=== PATIENT | female | born 1980 | race African-American/Black ===

== ENCOUNTER 2021-02-15 07:15 | Emergency (ER) | payer MEDICAID ==
[~2021-02-15] VITALS: Ht 167.6 cm; Wt 100.0 kg
[~2021-02-15 07:15] MED LIST: LEVO500T2 PO
[2021-02-15] MEDS ORDERED: HYDROCODONE/ACETAMINOPHEN 5/325MG TABLET PO ONE (10:45)
[2021-02-15] MEDS ORDERED: ONDANSETRON 4MG ODT PO ONE (10:45)
[2021-02-15 10:59] VITALS: BP 138/74
[2021-02-15 11:28] LABS: CLARITY URINE CLOUDY (CLEAR); COLOR URINE YELLOW (YELLOW); KETONES URINE NEGATIVE (NEGATIVE); LEUKOCYTE ESTERASE URINE 1+ (NEGATIVE); NITRITE URINE NEGATIVE (NEGATIVE); OCCULT BLOOD URINE NEGATIVE (NEGATIVE); PROTEIN URINE NEGATIVE (NEGATIVE); SPECIFIC GRAVITY URINE 1.027 (1.005-1.030); UROBILINOGEN URINE 0.2 E.U./dL (0.2-1.0)
[2021-02-15 11:48] LABS: BASOPHILS % 0.6 % (0.0-2.0); EOSINOPHILS % 2.2 % (0.0-5.0); HEMATOCRIT. 29.3 % (36.0-48.0); HEMOGLOBIN. 9.2 g/dL (12.0-16.0); LYMPHOCYTES % 19.6 % (20.0-50.0); MEAN CORPUSCULAR HEMOGLOBIN 24.5 pg (28.0-32.0); MEAN CORPUSCULAR VOLUME 77.9 fL (81.0-99.0); MEAN PLATELET VOLUME 6.6 fl (7.4-10.4); MONOCYTES % 6.3 % (2.0-8.0); NEUTROPHILS % 71.3 % (40.0-76.0); PLATELET 407 x1000/uL (130-400); RED BLOOD CELL COUNT 3.76 mill/uL (4.2-5.4); RED CELL DISTRIBUTION WIDTH 16.7 % (11.6-14.6)
[2021-02-15 11:50] LABS: CHLORIDE 109 mEq/L (98-107)
[2021-02-15 12:04] LABS: HCG SCREEN NEGATIVE
[2021-02-15] MEDS ORDERED: IBUP-2030 MT (14:52)
[2021-02-15] MEDS ORDERED: ONDA4TAB11 PO (14:52)
[2021-02-15] MEDS ORDERED: FERR324T4 MT (14:52)
[2021-02-15] MEDS ORDERED: NITR100C MT (14:52)
[2021-02-16] MEDS ORDERED: CEPH500T MT (19:31)
[2021-02-16] MEDS ORDERED: NAPR-1074 MT (19:31)
== END 2021-02-15 15:22 | disposition home or self-care (01) ==
LOC: ER 07:15
DX: R10.31 Right lower quadrant pain (principal); R11.0 Nausea; D25.9 Leiomyoma of uterus, unspecified; I88.0 Nonspecific mesenteric lymphadenitis
CPT/HCPCS: 36415; 74176; 76830; 76856; 80053; 81003; 81025; 83690; 84703; 85025; 87086; 99285; Q0162

== ENCOUNTER 2021-02-16 12:37 | Emergency (ER) | payer MEDICAID ==
[~2021-02-16] VITALS: Ht 167.6 cm; Wt 103.0 kg
[~2021-02-16 12:37] MED LIST changes: +FERR324T4 MT; +IBUP-2030 MT; +NITR100C MT; +ONDA4TAB11 PO
[2021-02-16] MEDS ORDERED: SODIUM CHLORIDE 0.9% 1,000 ML IV ONE (16:00)
[2021-02-16] MEDS ORDERED: MORPHINE SULFATE 4 MG/ML CPJ (NOT FOR IM USE) IV ONE (16:15)
[2021-02-16 16:29] LABS: CHLORIDE 108 mEq/L (98-107)
[2021-02-16 16:32] LABS: BASOPHILS % 0.6 % (0.0-2.0); EOSINOPHILS % 2.9 % (0.0-5.0); HEMATOCRIT. 27.9 % (36.0-48.0); HEMOGLOBIN. 8.8 g/dL (12.0-16.0); LYMPHOCYTES % 26.4 % (20.0-50.0); MEAN CORPUSCULAR HEMOGLOBIN 24.5 pg (28.0-32.0); MEAN CORPUSCULAR VOLUME 77.9 fL (81.0-99.0); MEAN PLATELET VOLUME 6.6 fl (7.4-10.4); MONOCYTES % 9.2 % (2.0-8.0); NEUTROPHILS % 60.9 % (40.0-76.0); PLATELET 361 x1000/uL (130-400); RED BLOOD CELL COUNT 3.59 mill/uL (4.2-5.4); RED CELL DISTRIBUTION WIDTH 16.5 % (11.6-14.6)
[2021-02-16 16:49] LABS: HCG SCREEN NEGATIVE
[2021-02-16 18:59] LABS: CLARITY URINE CLEAR (CLEAR); COLOR URINE YELLOW (YELLOW); KETONES URINE TRACE (NEGATIVE); LEUKOCYTE ESTERASE URINE 2+ (NEGATIVE); NITRITE URINE NEGATIVE (NEGATIVE); OCCULT BLOOD URINE TRACE (NEGATIVE); PH URINE 5.5 (4.5-8.0); PROTEIN URINE NEGATIVE (NEGATIVE); SPECIFIC GRAVITY URINE 1.014 (1.005-1.030); UROBILINOGEN URINE 0.2 E.U./dL (0.2-1.0)
[2021-02-16 19:18] LABS: *AMPHETAMINES SCREEN URINE NEGATIVE (NEGATIVE); *BARBITURATES SCREEN URINE NEGATIVE (NEGATIVE); *BENZODIAZEPINES SCREEN URINE NEGATIVE (NEGATIVE); *COCAINE SCREEN URINE NEGATIVE (NEGATIVE)
[2021-02-16 19:19] LABS: METHADONE URINE SCREEN NEGATIVE (NEGATIVE); PHENCYCLIDINE URINE SCREEN NEGATIVE (NEGATIVE)
[2021-02-16] MEDS ORDERED: CEPHALEXIN 250MG CAPSULE PO ONE (19:30)
[2021-02-16] MEDS ORDERED: CEPH500T MT (19:31)
[2021-02-16] MEDS ORDERED: NAPR-1074 MT (19:31)
[2021-02-16 19:32] LABS: CANNABINOID URINE SCREEN PRESUMTIVE POSITIVE (NEGATIVE); OPIATES URINE SCREEN PRESUMTIVE POSITIVE (NEGATIVE)
[2021-02-16 20:00] VITALS: BP 128/70
== END 2021-02-16 20:31 | disposition home or self-care (01) ==
LOC: ER 12:37
DX: N39.0 Urinary tract infection, site not specified (principal); I10 Essential (primary) hypertension; Z88.6 Allergy status to analgesic agent; Z88.5 Allergy status to narcotic agent; Z79.899 Other long term (current) drug therapy; Z98.890 Other specified postprocedural states
CPT/HCPCS: 36415; 76856; 80053; 80305; 81003; 83605; 83690; 84703; 85025; 85610; 96361; 96374; 99284; J2270; J7030

== ENCOUNTER 2023-09-20 22:10 | Emergency (ER) | payer MEDICAID ==
[~2023-09-20] VITALS: Ht 167.6 cm; Wt 90.0 kg
[~2023-09-20 22:10] MED LIST changes: -LEVO500T2 PO; +NAPR-1074 MT; -NITR100C MT
[2023-09-20 22:14] VITALS: BP 160/94; PULSE 90; RESP 16; TEMP 98.3; O2SAT 98
== END 2023-09-21 08:22 | disposition home or self-care (01) ==
LOC: ER 22:10
DX: B34.9 Viral infection, unspecified (principal); I10 Essential (primary) hypertension; Z88.6 Allergy status to analgesic agent; Z88.5 Allergy status to narcotic agent; Z98.890 Other specified postprocedural states
CPT/HCPCS: 99283

== ENCOUNTER 2023-11-07 23:28 | Emergency (ER) | payer MEDICAID ==
[~2023-11-07] VITALS: Ht 167.6 cm; Wt 106.0 kg
[2023-11-07 23:53] VITALS: TEMP 98.1; O2SAT 100
[2023-11-08 00:30] LABS: BASOPHILS % 0.6 % (0.0-2.0); EOSINOPHILS % 2.3 % (0.0-5.0); HEMATOCRIT. 31.9 % (36.0-48.0); HEMOGLOBIN. 9.4 g/dL (12.0-16.0); LYMPHOCYTES % 16.8 % (20.0-50.0); MEAN CORPUSCULAR HEMOGLOBIN 20.2 pg (28.0-32.0); MEAN CORPUSCULAR HGB CONC 29.3 g/dL (31.0-37.0); MEAN CORPUSCULAR VOLUME 68.8 fL (81.0-99.0); MEAN PLATELET VOLUME 6.9 fl (7.4-10.4); NEUTROPHILS % 71.3 % (40.0-76.0); PLATELET 428 x1000/uL (130-400); RED BLOOD CELL COUNT 4.64 mill/uL (4.2-5.4); RED CELL DISTRIBUTION WIDTH 23.9 % (11.6-14.6); WHITE BLOOD COUNT 9.7 x1000/uL (4.5-11.0)
[2023-11-08 00:31] LABS: ADD RBC MORPHOLOGY YES; DIFFERENTIAL COMMENT 1
[2023-11-08 00:46] LABS: HCG SCREEN NEGATIVE
[2023-11-08 00:50] LABS: ALANINE AMINOTRANSFERASE 9 IU/L (10-49); ALBUMIN 4.5 g/dL (3.2-4.8); ASPARTATE AMINOTRANSFERASE 15 IU/L (<34); BILIRUBIN DIRECT 0.2 mg/dL (<=3.0); BILIRUBIN TOTAL 0.6 mg/dL (0.1-1.0); PROTEIN TOTAL 7.6 g/dL (6.0-8.3)
[2023-11-08 00:57] LABS: PLATELET ESTIMATE NORMAL
[2023-11-08 00:58] LABS: HYPOCHROMASIA 2+; OVALOCYTES 2+; TARGET CELLS 1+; TEAR DROP CELLS 1+
[2023-11-08 00:59] LABS: MICROCYTOSIS 2+
[2023-11-08] MEDS ORDERED: MORPHINE SULFATE 4 MG/ML INJ (FOR IV/IM USE) IM ONE (01:00)
[2023-11-08 01:24] LABS: CHLORIDE 110 mEq/L (98-107); POTASSIUM 3.8 mEq/L (3.5-5.1); SODIUM 138 mEq/L (136-145)
[2023-11-08 01:25] LABS: CARBON DIOXIDE 21 mEq/L (21-32)
[2023-11-08 01:26] LABS: CALCIUM 9.4 mg/dL (8.7-10.4)
[2023-11-08 01:30] LABS: GLUCOSE 96 mg/dL (70-105)
[2023-11-08 01:31] LABS: UREA NITROGEN BLOOD 12 mg/dL (9-23)
[2023-11-08] MEDS ORDERED: ONDA4TAB50 MT (03:17)
[2023-11-08] MEDS ORDERED: IBUP-2028 MT (03:17)
[2023-11-08 03:35] VITALS: BP 123/93; PULSE 109; RESP 20
[2023-11-08] MEDS: KETOROLAC 30MG/ML VIAL IM ONE (03:35)
[2023-11-08 04:01] LABS: CLARITY URINE CLOUDY (CLEAR); COLOR URINE DARK YELLOW (YELLOW); GLUCOSE URINE NEGATIVE (NEGATIVE); KETONES URINE NEGATIVE (NEGATIVE); LEUKOCYTE ESTERASE URINE NEGATIVE (NEGATIVE); NITRITE URINE NEGATIVE (NEGATIVE); OCCULT BLOOD URINE 1+ (NEGATIVE); PROTEIN URINE TRACE (NEGATIVE); SPECIFIC GRAVITY URINE 1.034 (1.005-1.030)
[2023-11-08 04:21] LABS: WBC URINE 0-2 /hpf (0-2)
[2023-11-08 04:22] LABS: BACTERIA URINE 1+; CALCIUM OXALATE CRYSTALS URINE 1+ /lpf; MUCUS URINE 4+ /lpf (< = 2+); RBC URINE 0-2 /hpf (0-2); SQUAMOUS EPITHELIAL CELL URINE 2+ /lpf (RARE/1+)
== END 2023-11-08 03:19 | disposition home or self-care (01) ==
LOC: ER 23:33
DX: R10.11 Right upper quadrant pain (principal); Z87.19 Personal history of other diseases of the digestive system; I10 Essential (primary) hypertension; Z98.890 Other specified postprocedural states; Z79.899 Other long term (current) drug therapy
CPT/HCPCS: 81025; 36415 ×2; 93005; 99285; 80076; 80048; 81003; 84703; 83690; 85025; 76700; 96372; J1885; Z7610

== ENCOUNTER 2024-07-20 00:33 | Emergency (ER) | payer MEDICAID ==
[~2024-07-20] VITALS: Ht 167.6 cm; Wt 100.0 kg
[~2024-07-20 00:33] MED LIST changes: +IBUP-2028 MT; +ONDA-239 PO; -ONDA4TAB11 PO; +ONDA4TAB50 MT
[2024-07-20 00:36] VITALS: O2SAT 100
[2024-07-20 00:37] VITALS: BP 170/103; PULSE 86; RESP 18; TEMP 36.7; O2SAT 100
[2024-07-20] MEDS ORDERED: DICYCLOMINE 10 MG/5 ML ORAL SYR PO STA (00:56)
[2024-07-20] MEDS ORDERED: ONDANSETRON 4MG ODT PO STA (00:56)
[2024-07-20] MEDS ORDERED: MAGNESIUM/ALUMINUM HYDROXIDE/SIMETHICONE 30ML UDC PO STA (00:56)
[2024-07-20] MEDS ORDERED: FAMOTIDINE 20MG TABLET PO ONE (01:00)
[2024-07-20 01:09] LABS: BASOPHILS % 0.9 % (0.0-2.0); EOSINOPHILS % 3.8 % (0.0-5.0); HEMOGLOBIN. 8.3 g/dL (12.0-16.0); LYMPHOCYTES % 25.2 % (20.0-50.0); MEAN CORPUSCULAR HEMOGLOBIN 22.1 pg (28.0-32.0); MEAN CORPUSCULAR HGB CONC 29.7 g/dL (31.0-37.0); MEAN CORPUSCULAR VOLUME 74.4 fL (81.0-99.0); MEAN PLATELET VOLUME 6.9 fl (7.4-10.4); MONOCYTES % 10.7 % (2.0-8.0); NEUTROPHILS % 59.4 % (40.0-76.0); PLATELET 342 x1000/uL (130-400); RED BLOOD CELL COUNT 3.75 mill/uL (4.2-5.4); RED CELL DISTRIBUTION WIDTH 23.7 % (11.6-14.6); WHITE BLOOD COUNT 4.9 x1000/uL (4.5-11.0)
[2024-07-20] MEDS ORDERED: DICYCLOMINE HCL 10MG CAPSULE PO NR (01:15)
[2024-07-20 01:17] LABS: CARBON DIOXIDE 25 mEq/L (21-32); CHLORIDE 106 mEq/L (98-107); POTASSIUM 3.6 mEq/L (3.5-5.1); SODIUM 138 mEq/L (136-145)
[2024-07-20 01:18] LABS: CALCIUM 9.3 mg/dL (8.7-10.4)
[2024-07-20 01:22] LABS: CREATININE 0.6 mg/dL (0.6-1.0); GLUCOSE 84 mg/dL (70-105)
[2024-07-20 01:23] LABS: UREA NITROGEN BLOOD 9 mg/dL (9-23)
[2024-07-20 01:24] LABS: ALANINE AMINOTRANSFERASE < 7 IU/L (10-49); ASPARTATE AMINOTRANSFERASE 11 IU/L (<34)
[2024-07-20 01:25] LABS: BILIRUBIN DIRECT 0.2 mg/dL (<=3.0); BILIRUBIN TOTAL 0.6 mg/dL (0.1-1.0); PROTEIN TOTAL 6.9 g/dL (6.0-8.3)
[2024-07-20 01:31] LABS: DIFFERENTIAL COMMENT 1
[2024-07-20] MEDS ORDERED: FAMO-135 MT (01:56)
[2024-07-20] MEDS ORDERED: KETOROLAC 30MG/ML VIAL IM ONE (02:00)
[2024-07-20 03:00] LABS: HCG SCREEN NEGATIVE
== END 2024-07-20 05:26 | disposition left against medical advice (07) ==
LOC: ER 00:33
DX: K29.70 Gastritis, unspecified, without bleeding (principal); I10 Essential (primary) hypertension; Z88.5 Allergy status to narcotic agent; Z98.890 Other specified postprocedural states
CPT/HCPCS: 36415; 80048; 80076; 84703; 85025; 93005; 99283; 99284